=== PATIENT | female | born 1970 | race Caucasian/White ===

== ENCOUNTER 2024-09-07 14:25 | Emergency (ER) | payer MEDICAID ==
[~2024-09-07] VITALS: Ht 170.2 cm; Wt 66.2 kg
[2024-09-07] MEDS ORDERED: ACET15SO5 EACH EAR (15:05)
[2024-09-07 15:19] VITALS: BP 112/58; O2SAT 99
== END 2024-09-07 15:19 | disposition home or self-care (01) ==
LOC: ER 14:25
DX: H61.21 Impacted cerumen, right ear (principal)
CPT/HCPCS: A4606; A4663